=== PATIENT | female | born 1960 | race Caucasian/White ===

== ENCOUNTER 2024-06-29 15:57 | Emergency (ER) | payer OTHER, SELFPAY ==
[2024-06-29 15:58] VITALS: BP 191/101; PULSE 89; RESP 19; TEMP 36.4; O2SAT 98
[2024-06-29 16:26] VITALS: BP 159/93; PULSE 90; RESP 19; O2SAT 97
--- NOTE | 2024-06-29 16:33 | EKG12_ITS ---
Test Reason : HYPERTENSION Blood Pressure : */* mmHG Vent. Rate : 89 BPM Atrial Rate : 89 BPM P-R Int : 156 ms QRS Dur : 80 ms QT Int : 382 ms P-R-T Axes : 68 42 66 degrees QTcB Int : 464 ms Normal sinus rhythm Septal infarct (cited on or before 09-Jun-2010) Abnormal ECG Confirmed by NAEL SCHULTZ, ANY ([id number]), publishing editor ASHIA DEL ANGEL ([id number]) on 07/05/2024 7:08:25 AM Referred By: Hasmukh Caldera Confirmed By: ANY NAYAK MD
--- NOTE | 2024-06-29 16:35 | EX.ED.DYSGE1 ---
HPI History of Present Illness Chief Complaint: Hypertension Detail of Chief Complaint: Progressive shortness of breath over 6 months. Onset/Context/Timing Onset: Weeks and Month(s) Current Severity: Mild Maximum Severity: Mild Narrative Narrative: 64-year-old female history of hypertension which she takes losartan, CAD, diabetes COPD. Says over the last 6 months she has had shortness of breath worse in the last 2 weeks. No chest pain whatsoever. No leg pain or swelling. No hemoptysis. No history of DVT or PE. No recent travel, surgery or immobilization. Said the shortness of breath is worse with exertion. States however when she does get short of breath her sats do not drop they typically are between 94 and 96%. Today she was the deputy attorney general office. It was a new nurse practitioner that saw her. And [facility] evaluate Emergency Department because her blood pressure was elevated at their office at 196/120. Patient states typically her blood pressure is well-controlled with her losartan. She does smoke. She denies any productive cough nor any fever or chills. No melena. No black or bloody stools. Prior similar symptoms: Yes Recent Illness/Hospitalization: No PFSH PFSH Medical History Dysfunction of both eustachian tubes Hearing difficulty of both ears Binge eating disorder COVID-19 COVID Fatigue Pneumonia Shortness of breath Abnormal CT scan, lung Diabetes mellitus screening Dyslipidemia Coronary artery disease involving [place] coronary artery of [place] heart without angina pectoris Hypertension, goal below 140/90 Pulmonary emphysema Adult ADHD Adult hypothyroidism Exercise counseling Dietary counseling COPD, group A, by GOLD 2013 classification Morbid obesity BMI 35.0-35.9,adult Home Medications ?Medication ?Instructions ?Recorded ?Last Taken ?Type albuterol sulfate 2.5 mg/3 mL 2.5 mg (3 mL) inhalation Q4H PRN 06/29/24 Unknown Rx (0.083 %) solution for nebulization #25 vials albuterol sulfate 2.5 mg/3 mL mg inhalation Q4 PRN wheezing 06/29/24 Unknown History (0.083 %) solution for nebulization albuterol sulfate 90 mcg/actuation 2 puff inhalation Q4 PRN wheezing 06/29/24 Unknown History aerosol inhaler ipratropium 0.5 mg-albuterol 3 mg ml inhalation TID PRN wheezing 06/29/24 Unknown History (2.5 mg base)/3 mL nebulization soln levothyroxine 125 mcg tablet 150 mcg PO QDAY 06/29/24 Unknown History lisdexamfetamine 70 mg capsule 70 mg PO QDAY 06/29/24 Unknown History losartan 25 mg tablet 25 mg PO QDAY 06/29/24 Unknown History prednisone 20 mg tablet 40 mg (2 x 20 mg) PO DAILY 7 days 06/29/24 Unknown Rx #14 tabs Allergy/AdvReac Type Severity Reaction Status Date / Time acetaminophen (From Allergy Vomiting Verified 06/29/24 15:17 Tylenol-Codeine #3) aspirin Allergy Rash Verified 06/29/24 15:17 codeine (From Allergy Vomiting Verified 06/29/24 15:17 Tylenol-Codeine #3) hydrocodone (From Vicodin) Allergy Rash Verified 06/29/24 15:17 oxycodone (From Percocet) Allergy Other Verified 06/29/24 15:17 Surgical History H/O: hysterectomy Social History Smoking Status: Former smoker alcohol intake: current alcohol intake frequency: holidays/special occasions only substance use type: does not use caffeine: Yes Type: tea Number of servings: 2 ROS ROS ED ROS Narrative Shortness of breath over 6 months. Worse over 2 weeks. No chest pain. No fever. No new cough. No hemoptysis. No leg pain or swelling. No melena. Constitutional Constitutional ED: Denies chills or fever(s) Eyes Eyes: Denies blurry vision ENT ENT ED: Denies ear pain Cardiovascular Cardiovascular: Denies chest pain or orthopnea Respiratory/Chest Respiratory/Chest: Reports dyspnea and dyspnea on exertion; Denies cough, orthopnea or sputum Gastrointestinal Gastrointestinal: Denies abdominal pain Genitourinary Genitourinary ED: Denies dysuria or hematuria Musculoskeletal Musculoskeletal: Denies arthralgias Integumentary Denies abscess Neurologic Neurologic: Denies headache(s) Psychiatric Psychiatric: Denies anxiety Endocrine Endocrinology: Denies cold intolerance Hematologic/Lymphatic Hematologic/Lymphatic: Reports none Allergic/Immunologic Allergic/Immunologic ED: Denies mouth swelling, tongue swelling or urticaria EXAM Physical Exam Narrative Exam Narrative: Well-appearing 64-year-old female. Sitting upright in bed. Initial blood pressure was 191/101. While still in the room it is already come down to 159/93. She is in no distress. Her pulse ox is 98% on room air no hypoxia. No one else is present in the room. H EENT exam moist mucous membranes. Pupils round reactive light. No facial droop. Neck nontender no JVD. No lymphadenopathy. Lungs clear to auscultation bilaterally. Prolonged expiratory phase. Currently no rales, rhonchi or wheezing. Equal symmetrical. Heart regular rhythm rate about 90 currently I hear no murmur. Chest wall nontender. Abdomen soft nontender. Moving all 4 extremities. Nontender, no edema or cords. Back nontender. Neurologically she is awake and alert no focal motor deficits. Const Vital Signs: 06/29/24 15:58 06/29/24 16:26 06/29/24 16:33 Temperature 97.5 F L Temperature Source Temporal Pulse Rate 89 90 Respiratory Rate 19 H 19 H Respiratory Pattern Blood Pressure 191/101 H 159/93 H Blood Pressure Mean 131 115 Pulse Ox 98 97 Oxygen Delivery Method Room Air Room Air Room Air 06/29/24 16:41 06/29/24 17:00 Temperature Temperature Source Pulse Rate 85 94 Respiratory Rate 16 24 H Respiratory Pattern Normal Blood Pressure 149/71 H Blood Pressure Mean 97 Pulse Ox 96 Oxygen Delivery Method Room Air Positive well nourished and well developed; Negative for cachectic, contractures or unkempt General Appearance ED: well developed and NAD; Negative for unkempt, cachectic, contractures, cyanotic, diaphoretic or pallor Nutritional Appearance: Negative for cachectic HEENT Reports moist mucous membranes Negative for trauma or tenderness Eyes PERRL and EOMs intact bilaterally General Eye ED: Negative for pale conjunctiva or scleral icterus Neck no lymphadenopathy, supple and no JVD General: Negative for tenderness Lymph Lymphatic: Negative for other Chest Wall inspection of chest normal and palpation of chest normal Resp normal respiratory effort and clear to auscultation bilaterally Resp Narrative: Prolonged expiratory phase. No wheezing or rales. No rhonchi. Equal symmetrical. Auscultation: Negative for rales, rhonchi, wheezes or diminished lung sounds Cardio regular rate, regular rhythm, S1 normal heart sound, S2 normal heart sound and no murmurs Rhythm: Negative for abnormal rhythm GI normal to inspection, nondistended, normoactive bowel sounds, non-tender, non-distended and no masses Palpation: soft; Negative for tender, guarding or rebound tenderness present Back/Spine no CVA tenderness General Back: Negative for CVA tenderness Cervical Spine: Negative for cervical spine tenderness Thoracic Spine / Upper Back: Negative for thoracic spinal tenderness or paraspinal muscle tenderness Lumbar Spine / Lower Back: Negative for lumbar spinal tenderness Extremity normal to inspection General Extremety ED: Negative for edema or tenderness General Extremity: Negative for edema Neuro oriented x3 and CN's II-XII intact bilaterally Sensorium / Orientation: alert; Negative for orientation impaired or lethargic Motor Exam: strength 5/5 throughout Psych mental status grossly normal Appearance: Negative for unkempt Attitude: No agitated Mood & Affect: Negative for depressed, anxious or tearful Skin no rashes or lesions noted and no wounds General Skin Exam: Negative for jaundice or pallor Lesions: No lesion noted Rashes: No rashes noted Trauma: Negative for abrasion Wounds: Negative for wounds noted MDM MDM MDM Narrative Medical decision making narrative: 64-year-old female with a 6-month history of shortness of breath worse in the last 2 weeks associated with exertion. No chest pain. No fever or cough. No leg pain or swelling. No history of DVT or PE. Exam hernandez she has a prominence polyphasics may be secondary to her COPD. She was given IV Solu-Medrol DuoNeb and albuterol aerosols and cardiac workup and respiratory workup was pursued with a chest x-ray and labs. Repeat exam patient is doing well. Most recent blood pressure was 149/71. She and I went over her test. She is comfortable being discharged home. She will be written for albuterol for home nebulizer. She has an inhaler. She be written for a weeks worth of steroids and will follow-up with her deputy attorney general. Clinically I think is secondary to her COPD. She and I went over her test results. History & Record Review Discussion w/independent historian: Patient Additional record(s) reviewed:: Prior inpatient record, Prior outpatient record, Prior ED visit and Prior labs Lab Data Attestation: I reviewed the patient's lab results. Lab results narrative: CBC shows a white count of 5. H&H 11.8 and 37.6. Platelets 240. Electrolytes show gap 6. Normal BUN 9 creatinine 0.8. Glucose 101. Troponin 9. Chest x-ray chronic changes. EKG unremarkable. Labs: Laboratory Results - last 24 hr 06/29/24 16:21 WBC 5.0 RBC 4.33 Hgb 11.8 L Hct 37.6 MCV 86.8 MCH 27.3 MCHC 31.4 L RDW Std Deviation 48.9 H RDW Coeff of Maulik 15.5 H Plt Count 240 MPV 8.8 Immature Gran % (Auto) 0.400 Neut % (Auto) 77.6 H Lymph % (Auto) 11.5 L [place] % (Auto) 9.3 Eos % (Auto) 0.8 Baso % (Auto) 0.4 Absolute Neuts (auto) 3.8 Absolute Lymphs (auto) 0.57 L Nucleated RBC % 0 Sodium 137 Potassium 4.1 Chloride 104 Carbon Dioxide 27.0 Anion Gap 6 BUN 9 Creatinine 0.82 Est GFR (MDRD) Af Amer 90 Est GFR (MDRD) Non-Af 74 BUN/Creatinine Ratio 10.9 Glucose 101 Calcium 9.6 Troponin I High Sens 9 Radiography Chest X-Ray - ED: 2 View, Read by ED Physician, Read by Radiologist, Normal, Heart, Lungs, Mediastinum, Bony Structures, No Acute Disease and Chronic Changes Diagnostic Testing: Clinical Impression(s) from Imaging Studies Chest X-Ray 06/29/24 17:00 IMPRESSION: No radiographic evidence of acute cardiopulmonary disease. Electronically Signed: Griffin Servin MD at 17:25 EST Reading Location ID and State: [facility] / [place] Tel , Service support , Chest x-ray, 2 views, AP lateral, interpreted by by myself and the radiologist shows no acute abnormality. Normal cardiac silhouette. Normal lungs. Chronic changes. Rhythm Strip Rhythm Strip: Sinus Rhythm Rate: 89 Ectopy: None EKG Initial EKG: Attestation: I personally reviewed and interpreted this EKG as follows: Interpretation: Sinus Rhythm and No Acute Injury Pattern Comments: Normal sinus rhythm rate 89 no acute signs of RI or ischemia. No dysrhythmia. Discharge Plan Triage Chief Complaint: Hypertension ED Provider: Hasmukh Caldera Dx/Rx/DC Orders Clinical Impression: Shortness of breath, COPD exacerbation Instructions: ED COPD Flare Prescriptions: New prednisone 20 mg tablet 40 mg PO DAILY 7 Days Qty: 14 0RF albuterol sulfate 2.5 mg /3 mL (0.083 %) solution for nebulization 2.5 mg inhalation Q4H PRN Qty: 25 0RF Rx Instructions: Use q4 hours and PRN for wheezing No Action albuterol sulfate 90 mcg/actuation HFA aerosol inhaler 2 puff inhalation Q4 PRN (Reason: wheezing) lisdexamfetamine 70 mg capsule 70 mg PO QDAY albuterol sulfate 2.5 mg /3 mL (0.083 %) solution for nebulization inhalation Q4 PRN (Reason: wheezing) losartan 25 mg tablet 25 mg PO QDAY ipratropium-albuterol 0.5 mg-3 mg(2.5 mg base)/3 mL solution for nebulization inhalation TID PRN (Reason: wheezing) levothyroxine 125 mcg tablet 150 mcg PO QDAY Primary Care Provider: Kristin Mendieta NP Referrals: NOT,DEFINED [Non-Staff] - Kristin Mendieta NP, HVAC TECHNICIAN RESIDENTIAL-C [Primary Care Provider] - As Needed Activity Restrictions/Additional Instructions: Call and follow-up with your deputy attorney general. Your labs look good. I think this is secondary to your COPD. You will be placed on prednisone 40 mg a day for 1 week. Use your inhaler. Use your nebulizer as needed. Print Language: Mohawk Disposition Disposition: Home, Self Care
[2024-06-29] MEDS: Ipratropium/Albuterol Sulfate 3 ML AMPUL.NEB INHALATION (16:40)
[2024-06-29] MEDS: Albuterol 2.5 MG/3 ML VIAL.NEB. INHALATION (16:40)
[2024-06-29 16:41] VITALS: PULSE 85; RESP 16
[2024-06-29 16:54] LABS: Absolute Lymphocyte Count 0.57 X10^3/uL (0.83-4.51); Absolute Neutrophil Count 3.8 X10^3/uL (2.0-7.7); Basophil# 0.02 X10^3/uL; Basophil% 0.4 % (0-1); Eosinophil# 0.04 X10^3/uL; Eosinophils% 0.8 % (0-5); Hematocrit 37.6 % (37-47); Hemoglobin 11.8 g/dL (12.0-15.0); Lymphocyte # 0.57 X10^3/ul (0.83-4.51); Lymphocyte % 11.5 % (19-41); Mean Corp Hgb Conc 31.4 g/dL (32-36); Mean Corpuscular Hgb 27.3 pg (27.0-32.0); Mean Corpuscular Volume 86.8 fL (81-99); Mean Platelet Vol. 8.8 fl (6.2-12.0); Monocyte# 0.46 X10^3/uL; Monocyte% 9.3 % (0-10); NRBC Flagged by Analyzer 0 % (0-5); Neutrophil # 3.84 X10^3/uL (2.7-7.7); Neutrophil % 77.6 % (47-70); POSITIVE DIFFERENTIAL YES; Platelet Count 240 K/mm3 (150-450); RBC Distribution Width CV 15.5 % (11.6-14.6); RBC Distribution Width SD 48.9 fl (35.1-43.9); Red Blood Count 4.33 M/mm3 (4.2-5.4)
[2024-06-29 17:00] VITALS: BP 149/71; PULSE 94; RESP 24; O2SAT 96
--- NOTE | 2024-06-29 17:00 | RAD_ITS ---
INDICATION: chest pain EXAMINATION/TECHNIQUE: X-RAY - XR Chest 2 Views COMPARISON: 10/27/2022 FINDINGS: LINES/DEVICES: None. LUNGS: No consolidation, edema or effusion. No pneumothorax. MEDIASTINUM AND CARDIOVASCULAR STRUCTURES: Cardiac silhouette not enlarged. Central airways and mediastinal contour are unremarkable. BONES AND SOFT TISSUES: No acute changes. RAD/Chest PA and Lateral IMPRESSION: No radiographic evidence of acute cardiopulmonary disease. Electronically Signed: Griffin Servin MD at 17:25 EST ,
[2024-06-29] MEDS: MethylPREDNISolone 125 MG/2 ML Vial IV (17:21)
[2024-06-29 17:24] LABS: Anion Gap 6 (5-15); BUN 9 mg/dL (7-18); BUN/Creat Ratio 10.9 RATIO (10-20); Calcium,Total 9.6 mg/dL (8.5-10.1); Chloride 104 mmol/L (98-107); Creatinine, Serum 0.82 mg/dL (0.55-1.02); EST Glomerular Filtration Rate 74 mL/min (>60); Est Glom Filt Rate - Afr Amer 90 mL/min (>60); Glucose 101 mg/dL (74-106); Potassium 4.1 mmol/L (3.5-5.1); Sodium Level 137 mmol/L (136-145); Troponin-I HS 9 pg/mL (3.0-54.0)
[2024-06-29 17:59] VITALS: BP 163/87; PULSE 93; RESP 22; TEMP 36.4; O2SAT 94
== END 2024-06-29 18:03 | disposition home or self-care (01) ==
PROVIDERS: Emergency Provider Emergency Medicine; PCP Nurse Practitioner Family; Referring Provider Emergency Medicine; Visit Provider Emergency Medicine
DX: J44.1 Chronic obstructive pulmonary disease with (acute) exacerbation (principal); I25.10 Atherosclerotic heart disease of native coronary artery without angina pectoris; Z87.891 Personal history of nicotine dependence; Z86.16 Personal history of COVID-19
CPT/HCPCS: 71046; 80048; 84484; 85025; 93005; 94640; 96374; 99284; A4216

== ENCOUNTER → 2024-08-10 | Outpatient (CLI) | payer OTHER, SELFPAY | END | disposition home or self-care (01) | LOC: PSN 08:12 | PROVIDERS: PCP Nurse Practitioner Family; Referring Provider Nurse Practitioner Family; Visit Provider Nurse Practitioner Family | DX: R06.02 Shortness of breath (principal) | CPT/HCPCS: 94060; 94726; 94729 ==

== ENCOUNTER → 2024-08-25 | Outpatient (CLI) | payer OTHER, SELFPAY ==
[2024-08-25 13:45] VITALS: PULSE 101; PULSE 105; PULSE 106; PULSE 108; PULSE 114; PULSE 116; PULSE 96; O2SAT 92; O2SAT 94; O2SAT 95; O2SAT 96
--- NOTE | 2024-08-31 11:21 | PCM.PSN.6M ---
PSN 6 Minute Walk Test 6 Minute Walk Test 6 Minute Walk Test: 6 Minute Walk Test PSN:6-Minute Walk Test Start: 08/25/24 14:08 Freq: Status: Active Protocol: RESP.6MINW Document 08/25/24 13:45 AEH (Rec: 08/25/24 14:11 AEH [id number]) 6 Minute Walk Test Date Performed 08/25/24 Time Performed 13:45 Height 5 ft 2 in Weight: 195 lb Weight in Pounds 195.[address]: Gregg Assistive device None used: Pre-test Oxygen Delivery Room Air Method Pulse Ox (%) 94 Pulse Rate (60-100 101 H beats/min) Dyspnea Norris Scale ( 0.5 0-10) Exertion Norris Scale 6 (6-20) 1st minute Oxygen Delivery Room Air Method Pulse Ox (%) 95 Pulse Rate (60-100 96 beats/min) 2nd minute Oxygen Delivery Room Air Method Pulse Ox (%) 96 Pulse Rate (60-100 101 H beats/min) 3rd minute Oxygen Delivery Room Air Method Pulse Ox (%) 92 Pulse Rate (60-100 105 H beats/min) 4th minute Oxygen Delivery Room Air Method Pulse Ox (%) 92 Pulse Rate (60-100 108 H beats/min) 5th minute Oxygen Delivery Room Air Method Pulse Ox (%) 92 Pulse Rate (60-100 114 H beats/min) 6th minute Oxygen Delivery Room Air Method Pulse Ox (%) 95 Pulse Rate (60-100 116 H beats/min) Dyspnea Norris Scale ( 1 0-10) Exertion Norris Scale 11 (6-20) Post-test Oxygen Delivery Room Air Method Pulse Ox (%) 95 Pulse Rate (60-100 106 H beats/min) Full Laps Walked 17 Partial Lap, Number 42 of Tiles Walked Total Distance 1045 Walked (ft) Interpretation Interpretation: The patient ambulated 1045 feet over the course of 6 minutes beginning on room air without assistive devices. Pretesting oxygen saturation was noted to be 94% on room air. With ambulation, the [place] oxygen saturation was 92%. There was no significant exertional oxygen desaturation. Recommendations Recommendations: There is no indication for the use of supplemental oxygen at this time.
== END | disposition home or self-care (01) ==
LOC: PSN 13:46
PROVIDERS: PCP Nurse Practitioner Family; Referring Provider Nurse Practitioner Family; Visit Provider Nurse Practitioner Family
DX: R06.02 Shortness of breath (principal)
CPT/HCPCS: 94618

== ENCOUNTER → 2024-10-19 | Outpatient (CLI) | payer OTHER, SELFPAY | END | disposition home or self-care (01) | LOC: SL 20:21 | PROVIDERS: PCP Nurse Practitioner Family; Referring Provider Nurse Practitioner Family; Visit Provider Nurse Practitioner Family | DX: G47.10 Hypersomnia, unspecified (principal) | CPT/HCPCS: 95810 ==

== ENCOUNTER → 2024-10-29 | Outpatient (CLI) | payer OTHER, SELFPAY ==
--- NOTE | 2024-10-29 08:55 | CT_ITS ---
PROCEDURE: LOW DOSE CT LUNG SCREENING 10/29/2024 REASON FOR EXAM: QUIT 14 YEARS AGO, >30 PACK YEAR HISTORY TECHNIQUE: Low Dose CT Lung screening without contrast. Coronal and Sagittal reconstruction series were provided. One or more dose reduction techniques were used (e.g., Automated exposure control, adjustment of the mA and/or kV according to patient size, use of iterative reconstruction technique). REFERENCE LINK: [employer] Lung-RADS RADIATION DOSE SUMMARY: CTDlvol: 4.02 mGy DLP: 122.8 mGycm COMPARISON: None. FINDINGS: PULMONARY NODULES: (Only nodules >3mm are reported) Nodules described below are on series 2 unless otherwise specified. Pulmonary Nodules: None. Normal unenhanced main pulmonary artery and right and left pulmonary arteries. Normal bilateral peripheral pulmonary arteries. Normal thoracic aorta and visualized great vessels. There is no demonstrated aortic aneurysm. Normal heart and pericardium. Normal mediastinum. Normal hilar regions. Normal visualized trachea and bronchi. The lungs are well expanded. Normal pulmonary parenchyma. Normal pleura. Small sliding hiatal hernia. Normal visualized upper abdomen. CT/Low Dose CT Lung Screening IMPRESSION: Coronary artery calcification (CAC) is is present Lung-RADS Category: 1 NEGATIVE. RECOMMEND 12-MONTH SCREENING LDCT. Reading Location: [facility]
== END | disposition home or self-care (01) ==
LOC: CT 08:51
PROVIDERS: PCP Nurse Practitioner Family; Referring Provider Nurse Practitioner Family; Visit Provider Nurse Practitioner Family
DX: Z12.2 Encounter for screening for malignant neoplasm of respiratory organs (principal); F17.210 Nicotine dependence, cigarettes, uncomplicated
CPT/HCPCS: 71271

== ENCOUNTER → 2024-12-05 | Outpatient (CLI) | payer OTHER, SELFPAY | END | disposition home or self-care (01) | LOC: SL 19:57 | PROVIDERS: PCP Nurse Practitioner Family; Referring Provider Nurse Practitioner Family; Visit Provider Nurse Practitioner Family | DX: G47.33 Obstructive sleep apnea (adult) (pediatric) (principal) | CPT/HCPCS: 95811 ==

== ENCOUNTER → 2025-04-28 | Outpatient (CLI) | payer OTHER, SELFPAY ==
--- NOTE | 2025-04-28 09:15 | RAD_ITS ---
PROCEDURE: CHEST PA AND LATERAL 04/28/2025 REASON FOR EXAM: SHORTNESS OF BREATH TECHNIQUE: Procedure Code: RADCXR Modality: DX Procedure: CHEST PA AND LATERAL COMPARISON: Chest x-ray of 06/29/2024. RAD/Chest PA and Lateral IMPRESSION: Lungs appear clear of acute disease, and unchanged. No pleural effusion or pneumothorax is noted. The cardiomediastinal silhouette is stable, with a calcified aorta noted. No e vidence of cardiomegaly. Mild thoracic spine degenerative changes are again seen. No acute osseous process is evident. Reading Location: [place] [id number]
== END | disposition home or self-care (01) ==
LOC: RAD 09:06
PROVIDERS: PCP Nurse Practitioner Family; Referring Provider Nurse Practitioner Family; Visit Provider Nurse Practitioner Family
DX: J44.89 Other specified chronic obstructive pulmonary disease (principal); R07.9 Chest pain, unspecified; S22.32XA Fracture of one rib, left side, initial encounter for closed fracture
CPT/HCPCS: 71046